=== PATIENT | female | born 1970 | race Caucasian/White ===

== ENCOUNTER 2018-08-19 20:43 | Emergency (ER) | payer SELFPAY ==
--- NOTE | 2018-08-19 20:49 | PDOC ---
Rapid Medical Evaluation Chief Complaint: Pain, Acute Time Seen by Provider: 08/19/18 20:47 Medical Evaluation: 08/19/18 20:47 I have performed a brief in-person evaluation of this patient. The patient presents with a chief complaint of:left neck pain worsening past week Pertinent physical exam findings: pain and mild immobilty to left I have ordered the following: nothing The patient will proceed to the ED for further evaluation.
[2018-08-19 21:00] VITALS: BP 129/78; PULSE 79; TEMP 97.5; BMI 23.8
[2018-08-19] MEDS ORDERED: KETOROLAC TROMETHAMINE 60 MG/2 ML VIAL IM ONE (21:17)
[2018-08-19] MEDS ORDERED: KETOROLAC TROMETHAMINE 60 MG/2 ML VIAL ONE (21:18)
--- NOTE | 2018-08-19 21:21 | PDOC ---
History of Present Illness - General Chief Complaint: Pain, Acute Stated Complaint: PAIN Time Seen by Provider: 08/19/18 20:47 - History of Present Illness Initial Comments: 08/19/18 21:17 48-year-old female without comorbidities presents for evaluation of left-sided neck and shoulder and arm pain 4 days without any precipitating traumatic event. No systemic symptoms. Past History - Past Medical History Allergies/Adverse Reactions: Allergies Allergy/AdvReac Type Severity Reaction Status Date / Time No Known Allergies Allergy Verified 08/19/18 20:48 Home Medications: Ambulatory Orders Cyclobenzaprine HCl [Flexeril 10 mg] 10 mg PO HS PRN #10 tablet 08/19/18 Ibuprofen [Motrin -] 600 mg PO TID #30 tablet 08/19/18 COPD: No - Suicide/Smoking/Psychosocial Hx Smoking History: Never smoked Review of Systems - Review of Systems Musculoskeletal: Yes: Neck Pain Neurological: Yes: Tingling *Physical Exam - Vital Signs Last Vital Signs Temp Pulse Resp BP Pulse Ox 97.5 F L 79 18 129/78 98 08/19/18 20:45 08/19/18 20:45 08/19/18 20:45 08/19/18 20:45 08/19/18 20:45 - Physical Exam Comments: 08/19/18 21:17 Cervical spine skin color and temperature are normal. Range of motion is decreased. There is no midline tenderness. Mild left-sided paracervical and trapezial spasm and tenderness. 5 strength in bilateral upper extremities without gross sensorimotor deficits. Positive Spurling maneuver on the left negative on the right. Neurovascularly intact. Left shoulder skin color and temperature are normal range of motion is full 5 out of 5 strength in internal/external rotation as well as supraspinous isolation negative impingement maneuvers. Moderate Sedation - Procedure Monitoring Vital Signs: Procedure Monitoring Vital Signs Temperature 97.5 F L 08/19/18 20:45 Pulse Rate 79 08/19/18 20:45 Respiratory Rate 18 08/19/18 20:45 Blood Pressure 129/78 08/19/18 20:45 O2 Sat by Pulse Oximetry (%) 98 08/19/18 20:45 *DC/Admit/Observation/Transfer Diagnosis at time of Disposition: Cervical radiculopathy - Discharge Dispostion Disposition: HOME Condition at time of disposition: Stable Decision to Admit order: No - Referrals Referrals: Eric Mcfarlane MD [Staff Physician] - - Patient Instructions Additional Instructions: Regrese a la heather de emergencias si los sntomas empeoran un poco sin resolver. [place] Tylenol segn lo indicado para el dolor y recetndole a U maulik prescripcin de Motrin, as efe un relajante muscular. El relajante muscular te lisa sueo maulik tableta de 20 antes de acostarse. Por favor, evita un seguimiento con ciruga de columna vertebral en estefanía o dos guerra para maulik evaluacin adicional y opciones de tratamiento return to the emergency room should symptoms worsen a little unresolved. Please take Tylenol as directed for pain and given U a prescription for prescription strength Motrin as well as a muscle relaxer. The muscle relaxer will make you sleepy a 20 tablet before bedtime. Please follow-up with spine surgery in one to 2 days for further evaluation and treatment options Print Language: SPA - Post Discharge Activity
== END 2018-08-19 21:22 | disposition home or self-care (01) ==
LOC: JERFT 20:43 → JER 20:43 → JERFT 21:22
CPT/HCPCS: 99281-25